=== PATIENT | female | born 1990 | race American Indian/Alaskan Native ===

== ENCOUNTER 2018-05-20 19:16 | Emergency (ER) | payer OTHER ==
[2018-05-20 19:41] VITALS: BP 104/62
[2018-05-20] MEDS ORDERED: TORADOL ONE (22:04)
[2018-05-20] MEDS ORDERED: TORADOL IM ONE (22:08)
== END 2018-05-20 22:13 | disposition left against medical advice (07) ==
LOC: ED 19:16
DX: R51 Headache (principal); M54.2 Cervicalgia; Z53.21 Procedure and treatment not carried out due to patient leaving prior to being seen by health care provider
CPT/HCPCS: J1885